=== PATIENT | male | born 1950 | race Caucasian/White ===

== ENCOUNTER 2020-11-05 23:08 | Emergency (ER) | payer OTHER, MEDICARE, SELFPAY ==
[2020-11-05 23:11] VITALS: BP 128/75; PULSE 92; RESP 16; TEMP 36.7; O2SAT 97; BMI 34.5
[2020-11-05 23:22] VITALS: PULSE 92
--- NOTE | 2020-11-05 23:34 | XRR_ITS ---
PROCEDURE INFORMATION: Exam: XR Right Finger(s) Exam date and time: 11/05/2020 11:43 PM Age: 70 years old Clinical indication: Injury or trauma; Fall; Blunt trauma (contusions or hematomas); Right; Index finger; Additional info: Finger injury TECHNIQUE: Imaging protocol: XR Right fingers. Views: Minimum 2 views. COMPARISON: No relevant prior studies available. FINDINGS: Bones/joints: Dorsal dislocation at the 2nd proximal interphalangeal joint. No fracture. 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 Soft tissues: Normal. XR/XR finger RT min 2V [id number] IMPRESSION: Dorsal dislocation at the 2nd proximal interphalangeal joint.
--- NOTE | 2020-11-05 23:38 | ED_ITS ---
HPI - Extremity Problem General: Chief complaint: Extremity Injury, Upper Stated complaint: finger injury Time Seen by Provider: 11/05/20 23:24 History of Present Illness: HPI Narrative: 70-year-old male who fell off of a trailer tonight. He injured his right index finger. It remains swollen, painful, and deformed. Sensation is intact. He cannot bend the finger. He wonders if it is dislocated. MD Complaint: extremity pain Onset (ago): minute(s) Pain Consistency: constant Location: right and other (Index finger) Radiation: none Relieving factors: immobilization Exacerbating factors: nothing Associated symptoms: Reports no associated symptoms; Deny fever(s) Review of Systems Const: Denies: fever(s) Neuro: Denies: headache(s), dizziness or confusion Physical Exam Const: COMMON NORMALS: no acute distress, patient oriented x3 and alert Chest: COMMONS NORMALS: normal inspection of the chest Resp: COMMON NORMALS: normal respiratory effort and No use of accessory muscles Cardio: COMMON NORMALS: regular rate, regular rhythm and Peripheral pulses 2+ throughout RATE: regular rate RHYTHM: regular rhythm PERIPHERAL PULSES: Peripheral pulses 2+ throughout Extremity: NARRATIVE EXTREMITY EXAM: Exam of the right hand reveals a deformed right index finger. The patient has trouble actively bending/flexing the finger. Capillary refill is intact. Sensation is intact. Neuro: COMMON NORMALS: patient oriented x3 SENSORIUM/ORIENTATION: Yes alert Procedures Orthopedic Fracture Reduction Fracture #1: Time Out Performed: No Side: right Fracture Reduction Location: finger Analgesia: nerve block Technique: direct manipulation and traction/counter-traction Post Reduction X-rays Demonstrate: anatomical reduction Post-reduction neuro exam: intact Post-reduction vascular exam: intact Splint Applied: Yes Patient Tolerated Procedure: well and no complications Course Vital Signs: Vital signs: Vital Signs Temperature 98.1 F 11/05/20 23:11 Pulse Rate 92 11/05/20 23:22 Respiratory Rate 16 11/05/20 23:11 Blood Pressure 128/75 11/05/20 23:11 Pulse Oximetry 97 11/05/20 23:11 MDM - Extremity (Nontraumatic) MDM Narrative: Medical decision making narrative: Reduction complete. Extension block splint for volar plate fracture. Follow-up with orthopedics Discharge Plan Discharge Patient Disposition: Home Clinical Impression: Fracture of middle phalanx of finger of right hand Dislocation of finger Qualifiers: Encounter type: initial encounter Qualified Code(s): S63.259A - Unspecified dislocation of unspecified finger, initial encounter Condition: Stable Discharge Orders: Discharge ED (Routine); Ordered 11/06/20 Ordered By: Cecil Tovar Referrals: Nickolas Clifton DO [Physician] - 4-7 days Discharge Diet: Usual diet Discharge Activity: Limit activity as instructed Patient Instructions: Finger Dislocation (ED) Activity Restrictions/Additional Instructions: Stay in splint until seen by orthopedics. Return for worsening pain, swelling, other concerns. 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
[2020-11-06] MEDS: lidocaine 1% INJ 20 mL INJECTION (00:12)
--- NOTE | 2020-11-06 00:33 | XRR_ITS ---
PROCEDURE INFORMATION: Exam: XR Right Finger(s) Exam date and time: 11/06/2020 12:35 AM Age: 70 years old Clinical indication: Injury or trauma; Fall; Blunt trauma (contusions or hematomas); Right; Index finger; Additional info: Reduction TECHNIQUE: Imaging protocol: XR Right fingers. Views: Minimum 2 views. COMPARISON: CR (UP EX, ) 11/05/2020 11:46 PM FINDINGS: Bones/joints: There has been reduction of 2nd PIP joint dislocation. Tiny volar plate fracture of the 2nd middle phalanx. Soft tissues: Normal. XR/XR finger RT min 2V [id number] IMPRESSION: 1. There has been reduction of 2nd PIP joint dislocation. 2. Tiny volar plate fracture of the 2nd middle phalanx.
[2020-11-06 01:07] VITALS: BP 121/70; PULSE 81; RESP 16; TEMP 36.7; O2SAT 97
--- NOTE | 2020-11-07 15:27 | DCPLANNER ---
relationship manager had message to schedule a followup appointment for patient with ortho. relationship manager called the ortho clinic, spoke with Nora, gave clinic patients information. relationship manager was told that patients information would be printed and reviewed. Clinic will call patient with appointment information.
--- NOTE | 2020-11-22 15:09 | DCPLANNER ---
Patient had a follow up appointment scheduled for 11.15.[address] Clifton -patient did attend appointment.
== END 2020-11-06 01:07 | disposition home or self-care (01) ==
PROVIDERS: Emergency Provider Emergency Medicine
DX: S63.280A Dislocation of proximal interphalangeal joint of right index finger, initial encounter (principal); S62.650A Nondisplaced fracture of middle phalanx of right index finger, initial encounter for closed fracture; W17.89XA Other fall from one level to another, initial encounter
CPT/HCPCS: 26770; 73140; 99283

== ENCOUNTER → 2020-11-15 10:53 | Outpatient (BNVA) | payer OTHER, SELFPAY | PROVIDERS: Visit Provider Orthopaedic Surgery | DX: M19.041 Primary osteoarthritis, right hand (principal); S63.610A Unspecified sprain of right index finger, initial encounter; X58.XXXA Exposure to other specified factors, initial encounter | CPT/HCPCS: 73140 ==